=== PATIENT | male | born 1970 | race Caucasian/White ===

== ENCOUNTER 2018-12-12 20:00 | Emergency (ER) | payer OTHER ==
[~2018-12-12] VITALS: Ht 170.2 cm; Wt 95.3 kg
[~2018-12-12 20:00] MED LIST: BACTRIM DS TAB1 EACH PO; CEPHALEXIN 250250 M1 PO; COLACE 100 MG100 MG PO; FLEXERIL PO; MIRALAX17 GM PO; NORCO 10-325 T1 EACH PO; NORCO 5-325 TA1 EACH PO; OMEPRAZOLE40 MG PO; OXYCODONE HCL 55 MG PO
[2018-12-12] MEDS ORDERED: DEXILANT60 MG (20:09)
[2018-12-12 20:18] LABS: URINE BILIRUBIN NEGATIVE (Negative); URINE BLOOD TRACE (Negative); URINE CLARITY CLEAR; URINE COLOR YELLOW; URINE GLUCOSE-RANDOM NEGATIVE (Negative); URINE KETONES NEGATIVE (Negative); URINE LEUKOCYTES-REFLEX NEGATIVE (Negative); URINE NITRITE-REFLEX NEGATIVE (Negative); URINE PROTEIN TRACE (Negative); URINE SPECIFIC GRAVITY >= 1.030 (1.005-1.030); URINE UROBILINOGEN 0.2 E.U./dl (0.2-1.0)
[2018-12-12 20:21] LABS: ABSOLUTE BASOPHILS 0.1 thou/uL (0.0-0.2); ABSOLUTE EOSINOPHILS 0.1 thou/uL (0.0-0.7); ABSOLUTE LYMPHOCYTES 2.5 thou/uL (0.8-5.3); ABSOLUTE MONOCYTES 0.6 thou/uL (0.0-1.2); ABSOLUTE NEUTROPHILS 5.2 thou/uL (1.6-8.1); BASOPHILS 0.7 %; EOSINOPHILS 1.1 %; HEMATOCRIT 49.7 % (42.0-52.0); HEMOGLOBIN 17.5 gm/dL (14.0-18.0); LYMPHOCYTES 29.4 %; MCH 30.3 pg (26.0-34.0); MCHC 35.1 g/dL (28.0-37.0); MCV 86.3 fL (80.0-100.0); MONOCYTES 7.1 %; MPV 8.8 fl. (7.2-11.1); NUCLEATED RBCS 0 /100WBC; PLATELET COUNT* 233 thou/uL (150-400); POLYS 61.7 %; RBC 5.76 mil/uL (4.50-6.00); RDW-CV 13.9 % (10.5-14.5); WBC 8.5 thou/uL (4.0-11.0)
[2018-12-12 20:38] LABS: ALBUMIN 4.1 g/dL (3.4-5.0); CALCIUM 8.7 mg/dL (8.5-10.1); CREATININE 1.4 mg/dL (0.6-1.3); TOTAL BILIRUBIN 0.5 mg/dL (<0.1-1.0); TOTAL PROTEIN 7.5 g/dL (6.4-8.2)
[2018-12-12] MEDS ORDERED: BENTYL 10 MG CA10 M1 PO (21:46)
[2018-12-12 22:02] VITALS: BP 125/86
--- NOTE | 2018-12-13 10:49 | EKG ---
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 BAUTISTA : 1970 Requested By: Lara Nelson Order Number: [id number] MD: Bertram Peña Measurements Intervals [place] Rate: 78 P: 49 [place]: 146 QRS: -18 QRSD: 84 T: 5 QT: 345 QTc: 393 Interpretive Statements Sinus rhythm Probable left atrial enlargement RSR' in V1 or V2, probably normal variant Left ventricular hypertrophy No previous ECG available for comparison Electronically Signed On 12-13-2018 10:49:16 CDT by Bertram Peña [email or web address] <ELECTRONICALLY SIGNED> By: Bertram Peña MD, [facility] 12/13/18 1049 27 27 Bertram Peña MD, FACC /EPI
== END 2018-12-12 22:13 | disposition home or self-care (01) ==
LOC: M.ERS 20:00
PROVIDERS: Nurse Practitioner Family
DX: R10.84 Generalized abdominal pain (principal); R14.0 Abdominal distension (gaseous)